=== PATIENT | female | born 2005 | race Caucasian/White ===

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

== ENCOUNTER 2023-07-20 11:38 | Emergency (ER) | payer SELFPAY ==
[2023-07-20 12:06] VITALS: BP 107/69; PULSE 59; RESP 16; TEMP 36.6; O2SAT 100
--- NOTE | 2023-07-20 12:50 | PC.NURSE ---
Pt states has decided to leave and follow up with neurologist tomorrow. SL discontinued. Pt & S/O instructed if any worsen in symptoms return to ED. Both voice understanding
== END 2023-07-21 05:28 | disposition left against medical advice (07) ==
DX: R55 Syncope and collapse (principal)
CPT/HCPCS: 99199